=== PATIENT | male | born 1980 | race Caucasian/White ===

== ENCOUNTER 2020-10-26 09:04 | Day surgery (SDC) | payer OTHER ==
[2020-10-23 16:50] VITALS: BMI 29.9
[2020-10-26] MEDS ORDERED: PROPOFOL 20 ML ONE ×2 (09:08→11:51)
[2020-10-26] MEDS ORDERED: LIDOCAINE HCL/PF 2% SDV 5ML VIAL ONE (09:08)
[2020-10-26] MEDS ORDERED: MIDAZOLAM HCL 2 MG/2 ML SINGLE DOSE VIAL ONE (09:08)
[2020-10-26] MEDS ORDERED: METHYLENE BLUE 50 MG/10 ML AMPUL ONE (09:27)
[2020-10-26] MEDS ORDERED: LIDOCAINE HCL 1%, 10 MG/ML (20ML VIAL) ONE (10:31)
[2020-10-26] MEDS ORDERED: BUPIVACAINE HCL/PF 0.5% (5MG/ML) 10 ML VIAL ONE (10:32)
[2020-10-26] MEDS ORDERED: ceFAZolin SODIUM 1 GM VIAL ONE (11:01)
[2020-10-26] MEDS ORDERED: BENZOIN/ALOE VERA/STORAX/TOLU 58 ML BOTTLE ONE (11:02)
[2020-10-26] MEDS ORDERED: ceFAZolin 2 GRAM PREMIX BAG IVPB ONE (11:02)
[2020-10-26] MEDS ORDERED: ONDANSETRON 4 MG/2 ML VIAL IVPUSH PRN (11:06)
[2020-10-26] MEDS ORDERED: oxyCODONE HCL 5 MG TABLET PO PRN (11:06)
[2020-10-26] MEDS ORDERED: LACTATED RINGERS SOLUTION 1,000 ML IV SCH (11:15)
[2020-10-26] MEDS ORDERED: BENZOIN/ALOE VERA/STORAX/TOLU 58 ML BOTTLE TP ONE (11:20)
[2020-10-26 16:36] VITALS: BP 129/78; PULSE 72; TEMP 97
== END 2020-10-26 16:10 | disposition home or self-care (01) ==
LOC: JASU-SURG 09:04
PROVIDERS: ATTEND Surgery
PROC: 0DQQ7ZZ Repair Anus, Via Natural or Artificial Opening (ICD-10-PCS; principal; 2020-10-26 11:00)
DX: K60.3 Anal fistula (principal)
CPT/HCPCS: 94760; Q9968